=== PATIENT | male | born 1995 | race Caucasian/White ===

== ENCOUNTER 2020-11-09 15:00 | Emergency (ER) | payer BC ==
[~2020-11-09] VITALS: Ht 180.3 cm; Wt 65.8 kg
[2020-11-09 15:00] VITALS: BP 127/85
[2020-11-09] MEDS ORDERED: ZOFRAN IV STA (15:14)
[2020-11-09] MEDS ORDERED: ULTRAM PO STA (15:14)
[2020-11-09] MEDS ORDERED: PEPCID PO STA (15:14)
[2020-11-09 15:18] LABS: BASOPHIL % 0.2 % (0.0-0.2); EOSINOPHIL # 0.1 10^3/uL (0.0-0.2); EOSINOPHIL % 1.6 % (0.0-5.0); LYMPHOCYTES # 2.11 10^3/uL1 (1.0-4.8); LYMPHOCYTES % 25.4 % (24.0-44.0); MEAN CORP HGB 30.6 pg (26-34); MONOCYTES % 12.1 % (5.0-12.0); NEUTROPHILS % 60.5 % (41.0-85.0); PLATELET COUNT 269 10^3/uL (150-400)
[2020-11-09] MEDS ORDERED: NS 1000ML 1,000 ML ONE (15:18)
[2020-11-09] MEDS ORDERED: PEPCID ONE (15:19)
[2020-11-09] MEDS ORDERED: ZOFRAN ONE (15:19)
[2020-11-09] MEDS ORDERED: ULTRAM ONE (15:19)
[2020-11-09 15:26] LABS: BILIRUBIN,URINE NEGATIVE (NEGATIVE); UA COLOR YELLOW; UROBILINOGEN,URINE 0.2 E.U./dL (0.2)
[2020-11-09] MEDS ORDERED: NS 1000ML 1,000 ML IV ONE (15:30)
[2020-11-09 15:46] LABS: CALCIUM 9.1 mg/dL (8.4-10.5); CARBON DIOXIDE 28.9 mmol/L (20.0-32)
[2020-11-09] MEDS ORDERED: BENTYL PO STA (15:57)
[2020-11-09] MEDS ORDERED: LIDOCAINE HCL VISCOUS MM STA (15:57)
[2020-11-09] MEDS ORDERED: MYLANTA PO STA (15:57)
[2020-11-09] MEDS ORDERED: XANAX PO STA (16:04)
[2020-11-09] MEDS ORDERED: LIDOCAINE VISCOUS ONE (16:07)
[2020-11-09] MEDS ORDERED: ATIVAN ONE (16:07)
[2020-11-09] MEDS ORDERED: BENTYL ONE (16:07)
[2020-11-09] MEDS ORDERED: MYLANTA ONE (16:08)
--- NOTE | 2020-11-09 16:16 | NUR ---
PSYCH PT MOTHER STATES THAT PT HAS THREATENED SUICIDE BEFORE, INCLUDING 2 DAYS AGO AND THAT HE WAS SEEN AT THE [facility] BUT WAS NOT ADMITTED FOR SUICIDAL IDEATION. SHE AND PT BOTH VERBALIZE THEY FEEL HE NEEDS TO BE EVALUATED FOR PSYCH. HE REPORTS HE HAS SUICIDAL THOUGHTS BUT DOESN'T KNOW IF HE WOULD FOLLOW THROUGH.
--- NOTE | 2020-11-09 16:16 | ER.PDOC ---
General Chief Complaint: General Complaint Stated Complaint: HEAT EXHAUSTION TRAVEL OUT OF US: No Time seen by MD: 16:00 Source: patient Exam Limitations: no limitations History of Present Illness Initial Comments Patient was walking under the sun, developed shortness of breath and epigastric burning pain Timing/Duration: 1 hour Severity: mild Modifying Factors: improves with rest Associated Symptoms: nausea/vomiting, shortness of breath Allergies: Coded Allergies: Corticosteroids (Glucocorticoids) (Verified Allergy, Unknown, UNK, 11/09/20) Latex, Natural Rubber (Verified Allergy, Unknown, 11/09/20) Past Medical History Medical History: GERD, other Surgical History: cholecystectomy, tonsillectomy Social History Alcohol Use: none Drug Use: none Reviewed Nursing Reviewed: Vital Signs, Abn. Noted Review of Systems All Other Systems: Reviewed and Negative Physical Exam General Appearance: Anxious EENT: eyes nml inspection Neck: Non-Tender Respiratory: chest non-tender CVS: reg rate & rhythm Gastrointestinal: Normal Bowel Sounds Back: Normal Inspection Extremities: Normal Range of Motion Neurologic/Psychiatric: drop clipper II-XII NML as Tested Skin: Normal Color Lymphatic: No Adenopathy Results/Orders Results/Orders Vital Signs Date Time Temp Pulse Resp B/P (MAP) Pulse Ox O2 Delivery O2 Flow Rate FiO2 11/09/20 20:19 70 16 119/82 (94) 98 Room Air 11/09/20 17:21 94 122/84 (97) 98 11/09/20 15:00 98.3 98 16 127/85 (99) 98 Room Air 11/09/20 15:00 98.3 98 18 98 11/09/20 15:00 98.3 98 16 Administered Medications Medications (Trade) Dose Ordered Sig/Luis Route PRN Reason Start Time Stop Time Status Last Admin Dose Admin Alprazolam (Xanax) 1 mg STAT STAT PO 11/09/20 16:04 11/09/20 16:05 UNV 11/09/20 16:16 1 MG Dicyclomine HCl (Bentyl) 20 mg STAT STAT PO 11/09/20 15:57 11/09/20 15:58 UNV 11/09/20 16:16 20 MG Famotidine (Pepcid) 20 mg STAT STAT PO 11/09/20 15:14 11/09/20 15:18 DC 11/09/20 15:25 20 MG Lidocaine HCl (Lidocaine HCl Viscous) 15 ml STAT STAT MM 11/09/20 15:57 11/09/20 15:58 UNV 11/09/20 16:15 15 ML Ondansetron HCl (Zofran) 4 mg STAT STAT IV 11/09/20 15:14 11/09/20 15:18 DC 11/09/20 15:24 4 MG Sodium Chloride 1,000 ml @ 0 mls/hr Q0M ONCE IV 11/09/20 15:30 11/09/20 15:31 DC 11/09/20 15:25 1,200 MLS/HR Tramadol HCl (Ultram) 100 mg STAT STAT PO 11/09/20 15:14 11/09/20 15:18 DC 11/09/20 15:25 100 MG Laboratory Tests Test 11/09/20 15:14 White Blood Count 8.3 10^3/uL (4.5-11.0) Red Blood Count 4.71 10^6/uL (4.50-5.90) Hemoglobin 14.4 g/dL (13.9-16.3) Hematocrit 41.3 % (37.0-53.0) Mean Corpuscular Volume 87.7 fL (78-100) Mean Corpuscular Hemoglobin 30.6 pg (26-34) Mean Corpuscular Hemoglobin Concent 34.9 g/dL (33-36.5) Red Cell Distribution Width 12.0 % (11.5-14.5) Platelet Count 269 10^3/uL (150-400) Mean Platelet Volume 9.3 fL (7.8-11.0) Neutrophils (%) (Auto) 60.5 % (41.0-85.0) Lymphocytes (%) (Auto) 25.4 % (24.0-44.0) Monocytes (%) (Auto) 12.1 % (5.0-12.0) H Neutrophils # (Auto) 5.0 10^3/uL (1.8-7.7) Lymphocytes # (Auto) 2.11 10^3/uL1 (1.0-4.8) Monocytes # (Auto) 1.0 10^3/uL (0.3-0.8) H Absolute Immature Granulocyte (auto 0.02 10^3 u/L (0-2) Absolute Eosinophils (auto) 0.1 10^3/uL (0.0-0.2) Immature Granulocytes % 0.20 % (0.00-0.50) Eosinophils % 1.6 % (0.0-5.0) Basophils % 0.2 % (0.0-0.2) Basophils # 0.0 10^3/uL (0.0-0.1) Prothrombin Time 11.9 SEC (9.6-12.0) Prothrombin Time INR (Non-Therap) 1.1 Activated Partial Thromboplast Time 25.7 SEC (24.67-30.72) Urine Collection Type RANDOM Urine Color YELLOW Urine Appearance CLEAR Urine Bilirubin NEGATIVE (NEGATIVE) Urine Ketones NEGATIVE (NEGATIVE) Urine Specific [place] 1.010 (1.005-1.030) Urine pH 7.0 (4.5-8.0) Urine Protein NEGATIVE (NEGATIVE) Urine Urobilinogen 0.2 E.U./dL (0.2) Urine Nitrate NEGATIVE (NEGATIVE) Urine Leukocyte Esterase NEGATIVE (NEGATIVE) Urine Glucose (Auto)(UA) NEGATIVE (NEGATIVE) Urine Blood TRACE-INTACT (NEGATIVE) H Urine RBC 0-2 RBC/HPF (NONE SEEN) Urine WBC 0-2 WBC/HPF (0-2) Urine Squamous Epithelial Cells NONE SEEN #/HPF (FEW) Urine Bacteria NONE SEEN (NONE SEEN) Sodium Level 140 mmol/L (132-145) Potassium Level 3.7 mmol/L (3.6-5.2) Chloride Level 105.0 mmol/L (96-109) Carbon Dioxide Level 28.9 mmol/L (20.0-32) Anion Gap 9.8 Blood Urea Nitrogen 9 mg/dL (7-18) Creatinine 0.91 mg/dL (0.59-1.40) Estimated GFR () 122.8 (>/=60) Est GFR (CKD-EPI)(Non-Afr Malaysian) 101.5 (>/=60) BUN/Creatinine Ratio 9.0 Glucose Level 98 mg/dL (70-110) Calcium Level 9.1 mg/dL (8.4-10.5) Total Bilirubin 0.5 mg/dL (0.2-1.0) Aspartate Amino Transferase (AST) 20 U/L (0-35) Alanine Aminotransferase (ALT) 26 U/L (12-78) Alkaline Phosphatase 82 U/L (50-136) Total Creatine Kinase 133 U/L (39-308) Pro-B-Type Natriuretic Peptide 20 pg/mL (0-125) Total Protein 6.6 g/dL (6.4-8.2) Albumin 4.0 g/dL (3.4-5.0) Globulin 2.6 Albumin/Globulin Ratio 1.538 Amylase Level 47 U/L (25-115) Lipase 69 U/L (114-286) L Salicylates Level < 2.8 mg/dL (2.8-20.0) L Urine Opiates Screen NEGATIVE (c/o300ng/mL) Urine Methadone Screen NEGATIVE (c/o300ng/mL) Acetaminophen Level < 2 ug/mL (10-30) L Urine Barbiturates Screen NEGATIVE (c/o200ng/mL) Urine Phencyclidine Screen NEGATIVE (c/o 25ng/mL) Ur Amphetamine/Methamphetamine NEGATIVE (rq3307od/mL) Urine MDMA Screen (Ecstasy) NEGATIVE (c/o300ng/mL) Urine Benzodiazepines Screen NEGATIVE (c/o200ng/mL) Urine Cocaine Metabolite Screen NEGATIVE (c/o300ng/mL) Ur Tetrahydrocannabinol (THC) Scrn NEGATIVE (c/o 50ng/mL) Serum Alcohol < 3 mg/dL (0-50) Progress Progress Patient developed suicidal ideation, MHC consulted Pt resting comfortably, vitals stable, workup normal, medically clear for transfer EKG/XRAY/CT/US EKG: NSR, no ST T wave changes ER DEPART Departure Time of Disposition: 18:45 [facility] Impression: Primary Impression: Major depression Additional Impression: Heat exhaustion Condition: Improved Referrals: PCP,UNKNOWN (PCP) PRIMARY CARE PROVIDER Additional Instructions: Patient is resting comfortably, medically clear for transfer Duration or Time Spent with Pa: 16m Problem Qualifiers KOKO SINGLETON MD Nov 09, 2020 16:16 FELISHA KUMAR MD Nov 09, 2020 20:24
--- NOTE | 2020-11-09 16:23 | NUR ---
[facility] NO STAFF HERE FOR [facility], AI FROM [place] STATED SHE WOULD CALL BRADEN HUMPHREY.
--- NOTE | 2020-11-09 16:35 | NUR ---
NILE HUMPHREY RN FROM [facility] HERE TO AN MAYS.
--- NOTE | 2020-11-09 16:43 | PCM.EKG ---
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
--- NOTE | 2020-11-09 17:20 | NUR ---
[facility] CONTACTED [facility] TO REQUEST PHONE INTERVIEW WITH PT. PT MOTHER CONTINUES TO BE AT BEDSIDE. PT SITTING UP IN BED EATING FOOD. Addendum: 11/09/20 at 1736 by JAKOB [facility] CONTACTED [facility] NOT PTC.
[2020-11-09 17:21] VITALS: BP 122/84
--- NOTE | 2020-11-09 18:30 | NUR ---
[facility] called back for over the phone evaluation of patient.
--- NOTE | 2020-11-09 18:58 | NUR ---
TPC is going to put referrals in to the [facility] and [place].
[2020-11-09 20:19] VITALS: BP 119/82
--- NOTE | 2020-11-09 21:29 | NUR ---
Dispatch notified for need of it project lead.
--- NOTE | 2020-11-09 22:00 | NUR ---
Dispatch contacted for need of transport to [place] by [facility].
--- NOTE | 2020-11-09 22:15 | NUR ---
Officer at bedside to take patient.
--- NOTE | 2020-11-09 22:19 | NUR ---
[facility] enroute to [place] at this time.
== END 2020-11-09 22:19 ==
LOC: EDBD 15:00 → ER 15:00
DX: T67.5XXA Heat exhaustion, unspecified, initial encounter (principal); F32.9 Major depressive disorder, single episode, unspecified; Z79.899 Other long term (current) drug therapy; X58.XXXA Exposure to other specified factors, initial encounter; Y93.89 Activity, other specified; Y92.89 Other specified places as the place of occurrence of the external cause; Y99.8 Other external cause status
CPT/HCPCS: 36415; 80053; 80299 ×2; 80307; 81001; 82077; 82150; 82550; 83690; 83880; 85025; 85610; 85730; 93005; 96361; 96374; 99285; J2405; J3490; J7030